=== PATIENT | female | born 1985 | race Hispanic/Latino ===

== ENCOUNTER 2024-12-05 20:31 | Emergency (ER) | payer SELFPAY ==
[~2024-12-05] VITALS: Ht 157.5 cm; Wt 74.8 kg
[2024-12-05 21:24] VITALS: PULSE 71; RESP 20; TEMP 98.6; O2SAT 100
[2024-12-05] MEDS ORDERED: AMOX TR-K CLV1 EAC2 PO (21:43)
[2024-12-05] MEDS ORDERED: MEDROL4 M2 PO (21:43)
== END 2024-12-05 21:48 | disposition home or self-care (01) ==
LOC: ER 21:43
DX: R09.81 Nasal congestion (principal); J01.00 Acute maxillary sinusitis, unspecified
CPT/HCPCS: 99282